=== PATIENT | female | born 1950 | race Caucasian/White ===

== ENCOUNTER → 2017-05-26 | Outpatient (CLI) | payer OTHER ==
[~2017-05-26] MED LIST: BUPR150T12 PO; ESTR0.5T PO; LEVO112T2 PO; PROZ40CA PO; VALT1TAB PO
[2017-05-26 09:41] LABS: AUTOMATED NEUTROPHIL # 2.3 TH/MM3 (1.8-7.7); EOSINOPHIL # 0.2 TH/MM3 (0-0.4); EOSINOPHIL % 4.1 % (0.0-4.0); HEMATOCRIT 41.6 % (35.0-46.0); HEMO FLAGS DIFF FINAL; LYMPH % 37.4 % (9.0-44.0); LYMPHOCYTE # 1.8 TH/MM3 (1.0-4.8); MEAN CELL VOLUME 94.6 FL (80.0-100.0); MEAN CORPUSCULAR HEMOGLOBIN 32.9 PG (27.0-34.0); MEAN CORPUSCULAR HGB CONC 34.7 % (32.0-36.0); MONO % 8.9 % (0.0-8.0); NEUT % 48.6 % (16.0-70.0); PLATELET COUNT 209 TH/MM3 (150-450); RED BLOOD COUNT 4.39 MIL/MM3 (4.00-5.30); RED CELL DISTRIBUTION WIDTH 13.7 % (11.6-17.2); WHITE BLOOD COUNT 4.7 TH/MM3 (4.0-11.0)
[2017-05-26 10:13] LABS: BICARBONATE 27.8 MEQ/L (21.0-32.0); POTASSIUM 4.9 MEQ/L (3.5-5.1)
[2017-05-26 10:24] LABS: FREE T3 2.91 PG/ML (2.18-3.98); FREE T4 1.29 NG/DL (0.76-1.46)
== END ==
LOC: CLAB 09:16
PROVIDERS: ATTEND Family Medicine
DX: R53.83 Other fatigue (principal)
CPT/HCPCS: 36415; 80048; 84439; 84443; 84481; 85025

== ENCOUNTER 2017-06-20 15:59 | Emergency (ER) | payer OTHER ==
[~2017-06-20] VITALS: Ht 157.5 cm; Wt 65.0 kg
[2017-06-20 16:00] VITALS: BP 137/78; PULSE 80; RESP 20; TEMP 98.5; O2SAT 98
--- NOTE | 2017-06-20 17:46 | PD ---
HPI Chief Complaint: Burn Time Seen by Provider: 17:43 Travel History International Travel<30 days: No Contact w/Intl Traveler<30days: No Traveled to known affect area: No History of Present Illness HPI 66-year-old female presents to the emergency Department with complaint of an electrical shock caused by pulling out a plug from the wall on a [employer] computer while at work today at [employer]. Electrical shock was to her left hand. She denies loss of consciousness. Denies lightheadedness, dizziness, syncope. Denies chest pain, shortness of breath, abdominal pain, nausea, vomiting. Reports mild headache at this time. Reports an area to the palmar aspect of her left wrist that is black, but she states is probably just soot. Reports she was wearing bracelets on her left wrist and one of them melted and was stuck from the electrical shop. Symptoms are mild in severity. Allergies verified on patient's chart. Has no other medical complaints. No other modifying factors or associated signs and symptoms. PFSH Past Medical History Cancer: No Cardiovascular Problems: Yes (mitral valve) Diabetes: No Endocrine: Yes Genitourinary: No Hepatitis: No Hiatal Hernia: No Immune Disorder: No Musculoskeletal: No Neurologic: Yes (hx of migraines) Psychiatric: No Reproductive: No Respiratory: No Thyroid Disease: Yes (hypo) Menopausal: Yes Past Surgical History Abdominal Surgery: No AICD: No Body Medical Devices: breast implants Cardiac Surgery: No Ear Surgery: No Endocrine Surgery: No Eye Surgery: Yes (right cataract removal) Genitourinary Surgery: Yes (HYSTERECTOMY) Gynecologic Surgery: Yes (hysterectomy) Joint Replacement: No Pacemaker: No Thoracic Surgery: Yes (breast augmentation) Tonsillectomy: Yes Other Surgery: Yes (BREAST AUGMENTATION) Social History Alcohol Use: Yes (GLASS OF WINE 2-3 TIMES/WEEK) Tobacco Use: No Substance Use: No Allergies-Medications (Allergen,Severity, Reaction): Coded Allergies: Sulfa (Sulfonamide Antibiotics) (Unverified Allergy, Severe, Anaphylaxis, 06/20/17) bacitracin (Unverified Allergy, Severe, hives and blister, 06/20/17) gramicidin D (Unverified Allergy, Severe, hives and blister, 06/20/17) neomycin (Unverified Allergy, Severe, hives and blister, 06/20/17) polymyxin B (Unverified Allergy, Severe, hives and blister, 06/20/17) Reported Meds & Prescriptions Reported Meds & Active Scripts Active Valtrex (Valacyclovir HCl) 1 Gm Tab 1,000 Mg PO DAILY Bupropion Sr 12 HR (Bupropion ER 12 HR (Smoking Deterrent)) 150 Mg Tab 150 Mg PO DAILY Take 1 tablet daily x 3 days then twice daily thereafter. Levothyroxine (Levothyroxine Sodium) 112 Mcg Tab 112 Mcg PO DAILY Estradiol 0.5 Mg Tab 0.5 Tab PO DAILY take 1/2 of 0.5mg tab (0.25mg q day) Prozac (Fluoxetine HCl) 40 Mg Cap 40 Mg PO DAILY Review of Systems Except as stated in HPI: all other systems reviewed are Neg Physical Exam Narrative GENERAL: Well-nourished, well-developed female patient, in no acute distress SKIN: Warm and dry. HEAD: Atraumatic. Normocephalic. EYES: Pupils equal and round. No scleral icterus. No injection or drainage. ENT: Mucosa pink and moist. Airway patent. NECK: Trachea midline. CARDIOVASCULAR: Regular rate and rhythm. No murmur appreciated. RESPIRATORY: No accessory muscle use. Breath sounds clear and equal bilaterally. No retractions or tachypnea. GASTROINTESTINAL: Rounded. MUSCULOSKELETAL: No obvious deformities. No clubbing. No cyanosis. No edema. NEUROLOGICAL: Awake and alert. Oriented 3. No obvious cranial nerve deficits. Motor grossly within normal limits. Normal speech. PSYCHIATRIC: Appropriate mood and affect; insight and judgment normal. Data Data Last Documented VS Vital Signs Date Time Temp Pulse Resp B/P (MAP) Pulse Ox O2 Delivery O2 Flow Rate FiO2 06/20/17 16:00 98.5 80 20 137/78 (97) 98 Room Air Orders Orders Electrocardiogram (06/20/17 ) Electrocardiogram (06/20/17 ) [facility] Medical Decision Making Medical Screen Exam Complete: Yes Emergency Medical Condition: Yes Medical Record Reviewed: Yes Differential Diagnosis Electrical shock of hand, electrical burn, arrhythmia Narrative Course 66-year-old female, [employer] employee, with electrical shock of her left hand that occurred at work today from pulling a plugged of a mobile computer out of the lip. Only complaint at this time is headache. I offered the patient medication for her headache and she declined. EKG was normal sinus rhythm. There is no burn noted to the left wrist. Instructed patient to follow up with primary care provider. Patient verbalizes understanding and agreement with treatment plan. Patient is medically cleared and stable for discharge. Discussed reasons to return to the emergency department. Patient agrees with treatment plan. The patients vital signs are stable and the patient is stable for outpatient follow-up and treatment. Patient discharged home, stable and in no acute distress. Diagnosis Primary Impression: Electrical shock of hand Qualified Codes: T75.4XXA - Electrocution, initial encounter Referrals: Primary Care Physician Departure Forms: Tests/Procedures, Work Release Enter return to work date: Jun 21, 2017 Additional Instructions: Follow-up with primary care provider Return to the emergency department immediately for worsening of symptoms Med/Other Pt SpecificInfo: No Change to Meds, No Meds Exist/No RX given Disposition: DISCHARGE HOME Condition: Stable Rema Lai Jun 20, 2017 17:46
--- NOTE | 2017-06-21 13:43 | EKG ---
Date Performed: 06/20/2017 Time Performed: 17:23:14 PTAGE: 66 years EKG: Sinus rhythm MINIMAL ST DEPRESSION BORDERLINE ECG Compared to prior tracing no significant change PREVIOUS TRACING : 01/15/2016 08.34 DOCTOR: Guillermina Noble Interpretating Date/Time 06/21/2017 13:40:00
== END 2017-06-20 18:12 | disposition home or self-care (01) ==
LOC: NEPK 15:59
DX: T75.4XXA Electrocution, initial encounter (principal); W86.8XXA Exposure to other electric current, initial encounter
CPT/HCPCS: 93005; 99283